=== PATIENT | female | born 1955 | race Caucasian/White ===

== ENCOUNTER → 2019-08-11 | Outpatient (CLI) | payer MEDICARE, MEDICAID ==
[~2019-08-11] MED LIST: HYDR-3237 PO; Ibuprofen PO; LEFL20TA16 PO; LISI-170 PO; MULT-658 PO; PANT40TA5 PO; TIZA4TAB2 PO; TOFA5TAB PO; folic acid PO; vitamin D PO
[2019-08-11 11:31] LABS: BASOPHILS # (AUTO) 0.04 x10^3/uL (0-0.1); BASOPHILS % (AUTO) 0 % (0-1); EOSINOPHILS # (AUTO) 0.09 x10^3/uL (0-0.4); EOSINOPHILS % (AUTO) 1 % (1-7); LYMPHOCYTES # (AUTO) 3.28 x10^3/uL (1-3.4); LYMPHOCYTES % (AUTO) 33 % (22-44); MD NO; MEAN CORPUSCULAR HEMOGLOBIN 26.1 pg (27.0-34.8); MEAN CORPUSCULAR HGB CONC 32.2 g/dL (32.4-35.8); MEAN CORPUSCULAR VOLUME 81.3 fL (80-100); MEAN PLATELET VOLUME 8.8 fL (7.4-10.4); MONOCYTES # (AUTO) 0.48 x10^3/uL (0.2-0.8); MONOCYTES % (AUTO) 5 % (2-9); NEUTROPHILS # (AUTO) 5.98 x10^3/uL (1.8-6.8); NEUTROPHILS % (AUTO) 61 % (42-75); PLATELET COUNT 418 x10^3/uL (130-400); RED BLOOD COUNT 4.64 x10^6/uL (3.82-5.3); RED CELL DISTRIBUTION WIDTH 18.2 % (9.6-15.2)
[2019-08-11 11:38] LABS: MICROSCOPIC NOT IND
[2019-08-11 11:42] LABS: CULTURE INDICATED? NO
[2019-08-11 11:43] LABS: ALANINE AMINOTRANSFERASE 16 U/L (12-78); ALBUMIN 3.6 g/dL (3.4-5.0); ANION GAP 5 mmol/L (5-15); CALCIUM 8.2 mg/dL (8.5-10.1); CHLORIDE 108 mmol/L (98-107); CREATININE 0.71 mg/dL (0.55-1.02)
[2019-08-11 11:46] LABS: ALKALINE PHOSPHATASE 167 U/L (45-117); BILIRUBIN,TOTAL 0.4 mg/dL (0.2-1.0); TOTAL PROTEIN 7.7 g/dL (6.4-8.2)
[2019-08-11 11:52] LABS: INTERNATIONAL NORMALIZED RATIO 0.97 (0.93-1.1); PROTHROMBIN TIME 10.2 Seconds (9.6-11.5)
== END | disposition home or self-care (01) ==
LOC: STAR 09:46
PROVIDERS: ATTEND Neurological Surgery
DX: Z01.818 Encounter for other preprocedural examination (principal); M54.16 Radiculopathy, lumbar region; M47.896 Other spondylosis, lumbar region; M43.16 Spondylolisthesis, lumbar region; I10 Essential (primary) hypertension
CPT/HCPCS: 36415; 71046; 80053; 81003; 85025; 85610; 85730; 93005

== ENCOUNTER 2019-08-25 09:00 | Inpatient (IN) | payer MEDICARE, MEDICAID ==
[~2019-08-25] VITALS: Ht 160 cm; Wt 83.8 kg
[2019-08-25] MEDS ORDERED: LACTATED RINGERS 1,000 ML IV SCH (09:31)
[2019-08-25] MEDS ORDERED: FENTANYL PF 250 MCG/5ML ONE (09:55)
[2019-08-25] MEDS ORDERED: MIDAZOLAM 1 MG/ML, 2ML ONE (09:55)
[2019-08-25] MEDS ORDERED: ACETAMINOPHEN 500 MG TABLET PO ONE (10:00)
[2019-08-25] MEDS ORDERED: GABAPENTIN 300 MG CAPSULE PO ONE (10:00)
[2019-08-25] MEDS ORDERED: OXYcodone IR 5MG TABLET PO ONE (10:00)
[2019-08-25] MEDS ORDERED: ONDANSETRON 2MG/ML, 2ML IV PRN ×2 (10:30→15:30)
[2019-08-25] MEDS ORDERED: HYDROmorphone 2 MG/ML, 1ML IVPush PRN ×2 (10:30→15:30)
[2019-08-25] MEDS ORDERED: MEPERIDINE/PF 25MG/ML,1ML IVPush PRN (10:30)
[2019-08-25] MEDS ORDERED: PROMETHAZINE 25 MG/ML, 1ML IV PRN (10:30)
[2019-08-25] MEDS ORDERED: DIAZEPAM 5 MG/ML, 2ML IVPush PRN (10:30)
[2019-08-25] MEDS ORDERED: hydrALAzine 20 MG/ML, 1ML IV PRN (10:30)
[2019-08-25] MEDS ORDERED: HYDROcodone/APAP 7.5-325MG/15ML UDC PO PRN (10:30)
[2019-08-25] MEDS ORDERED: EPHEDRINE 50 MG/ML, 1ML IVPush PRN (10:30)
[2019-08-25] MEDS ORDERED: LABETALOL 5MG/ML, 20ML IV PRN (10:30)
[2019-08-25] MEDS ORDERED: VANCOMYCIN 1,000 MG ONE (10:40)
[2019-08-25] MEDS ORDERED: BUPIVACAINE/PF 0.5% ONE (10:40)
[2019-08-25] MEDS ORDERED: THROMBIN 5,000 UNIT VIAL TP ONE (10:40)
[2019-08-25] MEDS ORDERED: KETOROLAC 30 MG/1 ML ONE (11:05)
[2019-08-25] MEDS ORDERED: SUCCINYLCHOLINE 20 MG/ML, 10ML ONE (11:05)
[2019-08-25] MEDS ORDERED: PHENYLEPHRINE 10 MG/ML ONE (11:05)
[2019-08-25] MEDS ORDERED: ONDANSETRON 2MG/ML, 2ML ONE ×2 (11:05→12:11)
[2019-08-25] MEDS ORDERED: LIDOCAINE PF 2%, 5ML ONE (11:05)
[2019-08-25] MEDS ORDERED: DEXAMETHASONE 4 MG/ML, 1ML ONE (11:05)
[2019-08-25] MEDS ORDERED: CEFAZOLIN 1,000 MG ONE (11:05)
[2019-08-25] MEDS ORDERED: PROPOFOL 10 MG/ML, 20ML ONE (11:05)
[2019-08-25] MEDS ORDERED: BACITRACIN OINT 500U/GM, 15 GM ONE (11:50)
[2019-08-25] MEDS ORDERED: BACITRACIN 50,000 UNIT ONE (11:50)
[2019-08-25] MEDS ORDERED: FENTANYL PF 100 MCG/2ML ONE (13:27)
[2019-08-25] MEDS ORDERED: OXYcodone 5 MG/5 ML ORAL.SOL UDC ONE (13:27)
[2019-08-25] MEDS: FENTANYL PF 100 MCG/2ML IV PRN ×2 (13:30→13:57)
[2019-08-25] MEDS ORDERED: DIAZEPAM 5 MG/ML, 2ML ONE (13:58)
[2019-08-25] MEDS ORDERED: HYDROmorphone 1 MG/ML, 1ML VIAL ONE (14:19)
[2019-08-25] MEDS ORDERED: OXYcodone 5 MG/5 ML ORAL.SOL UDC PO PRN (14:30)
[2019-08-25] MEDS ORDERED: DIPHENHYDRAMINE 50 MG/ML, 1ML IVPush PRN (15:30)
[2019-08-25] MEDS ORDERED: PROMETHAZINE 25 MG/ML, 1ML IM PRN (15:30)
[2019-08-25] MEDS ORDERED: LORazepam 1MG TABLET PO PRN (15:30)
[2019-08-25] MEDS ORDERED: BISACODYL 10 MG SUPP PR PRN (15:30)
[2019-08-25] MEDS ORDERED: HYDROcodone/APAP 5/325 TABLET PO PRN (15:30)
[2019-08-25] MEDS ORDERED: MAGNESIUM HYDROXIDE 8%, 30ML UDC PO PRN (15:30)
[2019-08-25] MEDS: D5%-0.9% NACL+KCL 20MEQ 1,000 ML IV SCH (15:57)
[2019-08-25] MEDS: OXYcodone/APAP 5/325MG TABLET PO PRN ×2 (17:12→21:00)
[2019-08-25 19:13] VITALS: BP 123/72
[2019-08-25] MEDS: CEFAZOLIN PMX 1GM/50ML 50 ML IVPB SCH (19:38)
[2019-08-25] MEDS: TIZANIDINE 4MG TABLET PO SCH (21:00)
[2019-08-25] MEDS: XELJANZ 5 MG PO SCH (21:00)
[2019-08-25] MEDS ORDERED: ZOLPIDEM 5MG TABLET PO PRN (21:00)
[2019-08-25 23:58] VITALS: BP 106/68
[2019-08-26] MEDS: CEFAZOLIN PMX 1GM/50ML 50 ML IVPB SCH ×2 (03:29→18:43)
[2019-08-26] MEDS: D5%-0.9% NACL+KCL 20MEQ 1,000 ML IV SCH ×3 (03:29→21:30)
[2019-08-26 03:31] VITALS: BP 92/60
[2019-08-26] MEDS: PANTOPROZOLE 40MG TABLET PO SCH (04:28)
[2019-08-26] MEDS: OXYcodone/APAP 5/325MG TABLET PO PRN ×3 (07:30→22:50)
[2019-08-26 07:35] VITALS: BP 100/61
[2019-08-26] MEDS ORDERED: MIDAZOLAM 1 MG/ML, 2ML ONE (07:39)
[2019-08-26] MEDS ORDERED: FENTANYL PF 250 MCG/5ML ONE ×3 (07:39→11:15)
[2019-08-26] MEDS ORDERED: ONDANSETRON 2MG/ML, 2ML ONE (07:43)
[2019-08-26] MEDS ORDERED: ROCURONIUM 10MG/ML,5ML ONE (07:43)
[2019-08-26] MEDS ORDERED: NEOSTIGMINE 1 MG/ML, 10ML ONE (07:43)
[2019-08-26] MEDS ORDERED: GLYCOPYRROLATE 0.2MG/1ML, 5ML ONE (07:43)
[2019-08-26] MEDS ORDERED: DEXAMETHASONE 4 MG/ML, 1ML ONE (07:43)
[2019-08-26] MEDS ORDERED: CEFAZOLIN 1,000 MG ONE (07:43)
[2019-08-26] MEDS ORDERED: PROPOFOL 10 MG/ML, 20ML ONE (07:43)
[2019-08-26] MEDS: SENNA/DOCUSATE TABLET PO SCH (07:44)
[2019-08-26] MEDS: LEFLUNOMIDE 20 MG TABLET PO SCH (07:44)
[2019-08-26] MEDS: XELJANZ 5 MG PO SCH ×2 (07:44→21:00)
[2019-08-26] MEDS: LISINOPRIL 10 MG TABLET PO SCH (07:44)
[2019-08-26] MEDS: FOLIC ACID 1 MG TABLET PO SCH (07:44)
[2019-08-26] MEDS ORDERED: PROPOFOL 50 ML ONE (07:44)
[2019-08-26] MEDS ORDERED: ACETAMINOPHEN 500 MG TABLET PO ONE (09:00)
[2019-08-26] MEDS ORDERED: SCOPOLAMINE PATCH, 1.5MG PATCH.TD72 TD ONE (09:00)
[2019-08-26] MEDS ORDERED: MULTIVITAMIN 1 TABLET PO SCH (09:00)
[2019-08-26] MEDS ORDERED: GABAPENTIN 300 MG CAPSULE PO ONE (09:00)
[2019-08-26] MEDS ORDERED: BUPIVACAINE/EPI 0.5% 1:200K ONE (09:11)
[2019-08-26] MEDS ORDERED: THROMBIN 5,000 UNIT VIAL TP ONE (09:12)
[2019-08-26] MEDS ORDERED: BACITRACIN 50,000 UNIT ONE (09:12)
[2019-08-26] MEDS ORDERED: VANCOMYCIN 1,000 MG ONE (09:12)
[2019-08-26] MEDS ORDERED: hydrALAzine 20 MG/ML, 1ML IV PRN (09:30)
[2019-08-26] MEDS ORDERED: MORPHINE SULFATE 4 MG/ML, 1ML IVPush PRN (09:30)
[2019-08-26] MEDS ORDERED: OXYcodone 5 MG/5 ML ORAL.SOL UDC PO PRN (09:30)
[2019-08-26] MEDS ORDERED: LABETALOL 5MG/ML, 20ML IV PRN (09:30)
[2019-08-26] MEDS ORDERED: HYDROmorphone 2 MG/ML, 1ML IVPush PRN (09:30)
[2019-08-26] MEDS ORDERED: HALOPERIDOL 5 MG/ML IV PRN (09:30)
[2019-08-26] MEDS ORDERED: MEPERIDINE/PF 25MG/ML,1ML IVPush PRN (09:30)
[2019-08-26] MEDS ORDERED: PROMETHAZINE 25 MG/ML, 1ML IV PRN (09:30)
[2019-08-26] MEDS ORDERED: FENTANYL PF 100 MCG/2ML ONE (13:47)
[2019-08-26] MEDS: FENTANYL PF 100 MCG/2ML IV PRN ×3 (13:49→14:15)
[2019-08-26] MEDS ORDERED: METHOCARBAMOL 1,000 MG in DEXTROSE 5% 100 ML IV ONE (14:00)
[2019-08-26] MEDS: METHOCARBAMOL 1,000 MG in DEXTROSE 5% 100 ML IV ONE ×2 (14:10→14:38)
[2019-08-26] MEDS ORDERED: OXYcodone 5 MG/5 ML ORAL.SOL UDC ONE (14:29)
[2019-08-26] MEDS ORDERED: DIPHENHYDRAMINE 50 MG/ML, 1ML IM PRN (16:00)
[2019-08-26] MEDS ORDERED: METHOCARBAMOL 750 MG TABLET PO PRN (16:00)
[2019-08-26] MEDS ORDERED: DIPHENHYDRAMINE 25 MG CAPSULE PO PRN (16:00)
[2019-08-26] MEDS ORDERED: HYDROmorphone 2MG TABLET PO PRN (18:30)
[2019-08-26] MEDS ORDERED: HYDROmorphone 2 MG/ML, 1ML IM PRN (18:30)
[2019-08-26] MEDS: TIZANIDINE 4MG TABLET PO SCH (21:59)
[2019-08-27 02:00] VITALS: BP 104/68
[2019-08-27] MEDS: CEFAZOLIN PMX 1GM/50ML 50 ML IVPB SCH (03:22)
[2019-08-27] MEDS: ENOXAPARIN 40 MG/0.4 ML SQ SCH (06:01)
[2019-08-27] MEDS: PANTOPROZOLE 40MG TABLET PO SCH (06:01)
[2019-08-27] MEDS: XELJANZ 5 MG PO SCH ×2 (08:26→20:24)
[2019-08-27] MEDS: SENNA/DOCUSATE TABLET PO SCH (08:26)
[2019-08-27] MEDS: LEFLUNOMIDE 20 MG TABLET PO SCH (08:27)
[2019-08-27] MEDS: D5%-0.9% NACL+KCL 20MEQ 1,000 ML IV SCH ×2 (08:27→16:55)
[2019-08-27] MEDS: LISINOPRIL 10 MG TABLET PO SCH (08:27)
[2019-08-27] MEDS: OXYcodone/APAP 5/325MG TABLET PO PRN ×4 (08:27→21:45)
[2019-08-27] MEDS: FOLIC ACID 1 MG TABLET PO SCH (08:27)
[2019-08-27 09:48] VITALS: BP 99/64
[2019-08-27 13:05] VITALS: BP 100/64
[2019-08-27] MEDS: TIZANIDINE 4MG TABLET PO SCH (20:24)
[2019-08-27 20:40] VITALS: BP 95/60
[2019-08-28 00:50] VITALS: BP 110/62
[2019-08-28] MEDS: OXYcodone/APAP 5/325MG TABLET PO PRN ×5 (02:04→20:36)
[2019-08-28] MEDS: D5%-0.9% NACL+KCL 20MEQ 1,000 ML IV SCH ×3 (03:30→23:04)
[2019-08-28] MEDS: PANTOPROZOLE 40MG TABLET PO SCH (05:51)
[2019-08-28] MEDS: ENOXAPARIN 40 MG/0.4 ML SQ SCH (05:51)
[2019-08-28] MEDS: FOLIC ACID 1 MG TABLET PO SCH (07:54)
[2019-08-28] MEDS: LISINOPRIL 10 MG TABLET PO SCH (07:54)
[2019-08-28] MEDS: SENNA/DOCUSATE TABLET PO SCH (07:54)
[2019-08-28] MEDS: XELJANZ 5 MG PO SCH ×2 (07:55→20:34)
[2019-08-28] MEDS: LEFLUNOMIDE 20 MG TABLET PO SCH (07:55)
[2019-08-28 08:40] VITALS: BP_SYST 107; BP_SYST 153; BP_DIAS 67; BP_DIAS 75
[2019-08-28 15:14] VITALS: BP 97/63
[2019-08-28 19:53] VITALS: BP 98/63
[2019-08-28] MEDS: TIZANIDINE 4MG TABLET PO SCH (20:34)
[2019-08-29 01:59] VITALS: BP 101/65
[2019-08-29] MEDS: OXYcodone/APAP 5/325MG TABLET PO PRN ×2 (02:36→08:39)
[2019-08-29] MEDS: PANTOPROZOLE 40MG TABLET PO SCH (06:00)
[2019-08-29] MEDS: ENOXAPARIN 40 MG/0.4 ML SQ SCH (06:04)
[2019-08-29 07:04] VITALS: BP 111/71
[2019-08-29] MEDS: LISINOPRIL 10 MG TABLET PO SCH (08:38)
[2019-08-29] MEDS: FOLIC ACID 1 MG TABLET PO SCH (08:39)
[2019-08-29] MEDS: XELJANZ 5 MG PO SCH (08:39)
[2019-08-29] MEDS: SENNA/DOCUSATE TABLET PO SCH (08:39)
[2019-08-29] MEDS: LEFLUNOMIDE 20 MG TABLET PO SCH (08:40)
[2019-08-29] MEDS: D5%-0.9% NACL+KCL 20MEQ 1,000 ML IV SCH (09:35)
[2019-08-29 13:05] VITALS: BP 103/67
[2019-08-29] MEDS ORDERED: OXYC-302 PO (13:06)
[2019-08-29] MEDS ORDERED: METH750T87 PO (13:07)
== END 2019-08-29 14:00 | disposition home or self-care (01) | DRG 454 ==
LOC: ORIP 09:00 → 4NE 14:52 → DCLOUNGE 08-29 13:49
PROVIDERS: ADMIT Neurological Surgery; ATTEND Neurological Surgery
PROC: 0ST20ZZ Resection of Lumbar Vertebral Disc, Open Approach (ICD-10-PCS; 2019-08-25)
PROC: 0SB20ZZ Excision of Lumbar Vertebral Disc, Open Approach (ICD-10-PCS; 2019-08-25)
PROC: 0SG10A0 Fusion of 2 or more Lumbar Vertebral Joints with Interbody Fusion Device, Anterior Approach, Anterior Column, Open Approach (ICD-10-PCS; principal; 2019-08-25 11:00)
PROC: 01NB0ZZ Release Lumbar Nerve, Open Approach (ICD-10-PCS; 2019-08-26)
PROC: 0SG1071 Fusion of 2 or more Lumbar Vertebral Joints with Autologous Tissue Substitute, Posterior Approach, Posterior Column, Open Approach (ICD-10-PCS; 2019-08-26)
PROC: 0SG00AJ Fusion of Lumbar Vertebral Joint with Interbody Fusion Device, Posterior Approach, Anterior Column, Open Approach (ICD-10-PCS; 2019-08-26)
PROC: 0SB20ZZ Excision of Lumbar Vertebral Disc, Open Approach (ICD-10-PCS; 2019-08-26)
PROC: 01NB0ZZ Release Lumbar Nerve, Open Approach (ICD-10-PCS; 2019-08-26)
PROC: 8E0W0CZ Robotic Assisted Procedure of Trunk Region, Open Approach (ICD-10-PCS; 2019-08-26)
DX: M48.062 Spinal stenosis, lumbar region with neurogenic claudication (principal); G99.2 Myelopathy in diseases classified elsewhere; M51.16 Intervertebral disc disorders with radiculopathy, lumbar region; M06.9 Rheumatoid arthritis, unspecified; M13.0 Polyarthritis, unspecified; M53.2X6 Spinal instabilities, lumbar region; M43.16 Spondylolisthesis, lumbar region; M41.25 Other idiopathic scoliosis, thoracolumbar region; Z82.61 Family history of arthritis; F32.9 Major depressive disorder, single episode, unspecified; Z83.3 Family history of diabetes mellitus; Z82.5 Family history of asthma and other chronic lower respiratory diseases
CPT/HCPCS: 36415; 72100; 72131; 86850; 86900; C1713; C1729; C1776; G0378; J0690; J1100; J1170; J1650; J1885; J2250; J2405; J2704; J2710; J3010; J3360; J3370; A4648; C1763; C1769; J0330; J2370; J2800; J3480; J7120